=== PATIENT | male | born 1985 | race Two or more races ===

== ENCOUNTER → 2016-09-24 | Outpatient (CLI) | payer BC ==
--- NOTE | 2016-09-24 15:55 | US ---
EXAMINATION TYPE: US kidneys/renal and bladder DATE OF EXAM: 09/24/2016 COMPARISON: NONE CLINICAL HISTORY: Bilateral Flank Pain R10.9. Intermittent bilateral flank pain EXAM MEASUREMENTS: Right Kidney: 10.2 x 5.6 x 4.8 cm Left Kidney: 10.6 x 5.4 x 4.8 cm Right Kidney: no evidence of hydronephrosis or mass Left Kidney: no evidence of hydronephrosis or mass Bladder: wnl Bilateral Jets seen: yes There is no evidence for hydronephrosis at this point in time. No nephrolithiasis is seen. No audelia s are identified. The urinary bladder is anechoic. Bilateral ureteral jets are seen. IMPRESSION: Unremarkable study.
== END | disposition home or self-care (01) ==
LOC: RADUSWWP 15:26
PROVIDERS: ATTEND Family Medicine
DX: R10.9 Unspecified abdominal pain (principal)
CPT/HCPCS: 76770

== ENCOUNTER 2018-02-06 11:12 | Emergency (ER) | payer BC, OTHER ==
[2018-02-06] MEDS ORDERED: SODIUM CHLORIDE 0.9% 1,000 ML IV STA (11:42)
[2018-02-06] MEDS ORDERED: ONDANSETRON 4 MG/2 ML VIAL IVP STA (11:42)
[2018-02-06] MEDS ORDERED: KETOROLAC 30 MG/ML 1 ML VIAL IVP STA (11:42)
[2018-02-06] MEDS ORDERED: MORPHINE SULFATE 2 MG/ML SYRINGE IVP STA (11:42)
--- NOTE | 2018-02-06 12:10 | ED ---
Abdominal Pain HPI - General Chief Complaint: Abdominal Pain Stated Complaint: Trouble Urinating Time Seen by Provider: 02/06/18 11:31 Source: patient Mode of arrival: ambulatory Limitations: no limitations - History of Present Illness Initial Comments: 32-year-old male patient presents to the emergency department today for evaluation of left flank pain and decreased urine output. Patient states he has had issues with kidney pain on and off over the last couple of years. States that last night he began has some discomfort to the left flank and then this morning the pain was significantly worse. He describes it as a sharp stabbing pain to the left flank region. States he is having nausea but has not vomited. States he has been chilled. States he has had frequent urination of small amounts. Denies any hematuria. Patient denies any recent rash, shortness breath, chest pain, diarrhea, constipation, back pain, numbness, tingling, dizziness, weakness, headache, visual changes, or any other complaints. - Related Data Previous Rx's Medication Instructions Recorded Hydrocodone/Acetaminophen [[place] 1 tab PO Q6HR PRN #12 tab 02/06/18 5-325] Ibuprofen [Motrin] 600 mg PO Q8HR PRN #30 tab 02/06/18 Ondansetron [Zofran ODT] 4 mg PO Q8HR PRN #10 tab 02/06/18 Tamsulosin HCl [Flomax] 0.4 mg PO DAILY #7 cap 02/06/18 Allergies Allergy/AdvReac Type Severity Reaction Status Date / Time No Known Allergies Allergy Verified 02/06/18 11:25 Review of Systems ROS Statement: Those systems with pertinent positive or pertinent negative responses have been documented in the HPI. ROS Other: All systems not noted in ROS Statement are negative. Past Medical History Past Medical History: No Reported History History of Any Multi-Drug Resistant Organisms: None Reported Past Surgical History: Appendectomy Past Psychological History: No Psychological Hx Reported Smoking Status: Never smoker Past Alcohol Use History: Occasional Past Drug Use History: None Reported General Exam Limitations: no limitations General appearance: alert, in no apparent distress, other (Physical well- developed, well-nourished adult male patient in no acute distress. Vital signs upon presentation are temperature 97.6F, pulse 63, respirations 20, blood pressure 120/74, pulse ox 98% on room air.) Eye exam: Present: normal appearance, PERRL, EOMI. Absent: scleral icterus, conjunctival injection, periorbital swelling Respiratory exam: Present: normal lung sounds bilaterally. Absent: respiratory distress, wheezes, rales, rhonchi, stridor Cardiovascular Exam: Present: regular rate, normal rhythm, normal heart sounds. Absent: systolic murmur, diastolic murmur, rubs, gallop, clicks GI/Abdominal exam: Present: soft, normal bowel sounds. Absent: distended, tenderness, guarding, rebound, rigid Back exam: Present: normal inspection. Absent: CVA tenderness (R), CVA tenderness (L) Neurological exam: Present: alert, oriented X3, CN II-XII intact Psychiatric exam: Present: normal affect, normal mood Skin exam: Present: warm, dry, intact, normal color. Absent: rash Course Vital Signs 02/06/18 02/06/18 02/06/18 11:23 12:30 14:14 Temperature 97.6 F Pulse Rate 63 Respiratory 20 16 16 Rate Blood Pressure 120/74 O2 Sat by Pulse 98 Oximetry Medical Decision Making - Medical Decision Making 32-year-old male patient presents to the emergency department today for evaluation of left flank pain, vomiting, and urinary retention. Physical examination did reveal left-sided abdominal tenderness, no CVA tenderness. Labs reviewed and are relatively unremarkable however urine did show 1+ protein , 4+ ketones, large amount of blood, trace leukocyte esterase, 85 red blood cells, many calcium oxalate crystals, few urine mucus. CT abdomen and pelvis without contrast was obtained and did reveal a calculus measuring 3 mm in the bladder. Patient symptoms, physical exam findings, lab findings are consistent with recently passed stone. I did discuss findings and results with patient. We'll start pain medication, Flomax. He is instructed to follow-up with urologist for recheck in 1-2 days. Discussed in detail. He verbalizes understanding and agrees this plan. - Lab Data Result diagrams: 02/06/18 12:00 02/06/18 12:00 Lab Results 02/06/18 02/06/18 02/06/18 Range/Units 12:00 12:00 12:00 WBC 6.8 (3.8-10.6) k/uL RBC 5.14 (4.30-5.90) m/uL Hgb 15.5 (13.0-17.5) gm/dL Hct 45.2 (39.0-53.0) % MCV 87.9 (80.0-100.0) fL MCH 30.1 (25.0-35.0) pg MCHC 34.2 (31.0-37.0) g/dL RDW 12.5 (11.5-15.5) % Plt Count 249 (150-450) k/uL Neutrophils % 78 % Lymphocytes % 14 % Monocytes % 5 % Eosinophils % 1 % Basophils % 0 % Neutrophils # 5.3 (1.3-7.7) k/uL Lymphocytes # 0.9 L (1.0-4.8) k/uL Monocytes # 0.4 (0-1.0) k/uL Eosinophils # 0.1 (0-0.7) k/uL Basophils # 0.0 (0-0.2) k/uL Sodium 141 (137-145) mmol/L Potassium 4.1 (3.5-5.1) mmol/L Chloride 103 (98-107) mmol/L Carbon Dioxide 23 (22-30) mmol/L Anion Gap 15 mmol/L BUN 12 (9-20) mg/dL Creatinine 0.74 (0.66-1.25) mg/dL Est GFR (CKD-EPI)AfAm >90 (>60 ml/min/1.73 sqM) Est GFR (CKD-EPI)NonAf >90 (>60 ml/min/1.73 sqM) Glucose 117 H (74-99) mg/dL Calcium 10.0 (8.4-10.2) mg/dL Total Bilirubin 1.0 (0.2-1.3) mg/dL AST 26 (17-59) U/L ALT 29 (21-72) U/L Alkaline Phosphatase 67 (38-126) U/L Total Protein 7.8 (6.3-8.2) g/dL Albumin 4.8 (3.5-5.0) g/dL Amylase 73 (30-110) U/L Lipase 67 (23-300) U/L Urine Color Yellow Urine Appearance Cloudy (Clear) Urine pH 6.0 (5.0-8.0) Ur Specific [place] 1.020 (1.001-1.035) Urine Protein 1+ H (Negative) Urine Glucose (UA) Negative (Negative) Urine Ketones 4+ H (Negative) Urine Blood Large H (Negative) Urine Nitrite Negative (Negative) Urine Bilirubin Negative (Negative) Urine Urobilinogen <2.0 (<2.0) mg/dL Ur Leukocyte Esterase Trace H (Negative) Urine RBC 85 H (0-5) /hpf Urine WBC 2 (0-5) /hpf Calcium Oxalate Crystal Many H (None) /hpf Urine Mucus Few H (None) /hpf - Radiology Data Radiology results: report reviewed, image reviewed CT abdomen and pelvis without contrast was obtained. Report was reviewed in its entirety. Impression by Dr. West shows numerous prominent mesenteric lymph nodes particularly on the right side of the abdomen measuring up to 5 mm. Findings may reflect mesenteric adenitis. Mild circumferential bladder wall thickening. Correlate to exclude cystitis. There is a 3 mm left-sided bladder calculus. Correlate for any prior renal colic to suggest the past on. Mild prostatic enlargement of 4.6 cm. Disposition Clinical Impression: Kidney stone Disposition: HOME SELF-CARE Condition: Good Instructions: Kidney Stones (ED), How to Strain Your Urine (ED) Additional Instructions: Increase fluids. Take medications as directed. Follow-up with urology if symptoms aren't improved over the next 1-2 days. Return immediately for any new , worsening, or concerning symptoms. Prescriptions: Hydrocodone/Acetaminophen [[place] 5-325] 1 tab PO Q6HR PRN #12 tab PRN Reason: Pain Ibuprofen [Motrin] 600 mg PO Q8HR PRN #30 tab PRN Reason: Pain Ondansetron [Zofran ODT] 4 mg PO Q8HR PRN #10 tab PRN Reason: Nausea Tamsulosin HCl [Flomax] 0.4 mg PO DAILY #7 cap Is patient prescribed a controlled substance at d/c from ED?: Yes When asked, does pt state using other controlled substances?: No If prescribed controlled substance>3 days was MAPS reviewed?: Prescribed <3 Days If opioid is for acute pain is fill amount 7 days or less?: Yes If Rx opioid, was Start Talking consent form obtained?: Yes Referrals: Lonny Miranda MD [Primary Care Provider] - 1-2 days Hiram Tapia MD [STAFF PHYSICIAN] - 1-2 days Time of Disposition: 14:32
[2018-02-06 12:31] VITALS: RESP 16
[2018-02-06 12:56] LABS: Basophils % (A) 0 %; Eosinophils # (A) 0.1 k/uL (0-0.7); Eosinophils % (A) 1 %; HCT 45.2 % (39.0-53.0); HGB 15.5 gm/dL (13.0-17.5); Lymphocytes # (A) 0.9 k/uL (1.0-4.8); Lymphocytes % (A) 14 %; MCH 30.1 pg (25.0-35.0); MCHC 34.2 g/dL (31.0-37.0); MCV 87.9 fL (80.0-100.0); Mean Platelet Volume 7.6; Monocytes # (A) 0.4 k/uL (0-1.0); Monocytes % (A) 5 %; Neutrophils # (A) 5.3 k/uL (1.3-7.7); Neutrophils % (A) 78 %; Platelet Count 249 k/uL (150-450); RBC 5.14 m/uL (4.30-5.90); RDW 12.5 % (11.5-15.5); WBC 6.8 k/uL (3.8-10.6)
[2018-02-06 13:06] LABS: ALT 29 U/L (21-72); AST 26 U/L (17-59); Albumin 4.8 g/dL (3.5-5.0); Alkaline Phosphatase 67 U/L (38-126); Amylase 73 U/L (30-110); Anion Gap 15 mmol/L; Blood Urea Nitrogen 12 mg/dL (9-20); Carbon Dioxide 23 mmol/L (22-30); Chloride 103 mmol/L (98-107); Glucose 117 mg/dL (74-99); Lipase 67 U/L (23-300); Potassium 4.1 mmol/L (3.5-5.1); Sodium 141 mmol/L (137-145); Total Protein 7.8 g/dL (6.3-8.2)
[2018-02-06 13:16] LABS: Appearance,Urine Cloudy (Clear); Bilirubin,Urine Negative (Negative); Blood,Urine Large (Negative); Calcium Oxalate Crystals,Urine Many /hpf; Color,Urine Yellow; Glucose,Urine (UA) Negative (Negative); Ketones,Urine 4+ (Negative); Leukocyte Esterase,Urine Trace (Negative); Mucus,Urine Few /hpf; Nitrite,Urine Negative (Negative); Protein,Urine 1+ (Negative); RBC,Urine 85 /hpf (0-5); Urobilinogen,Urine <2.0 mg/dL (<2.0); WBC,Urine 2 /hpf (0-5)
--- NOTE | 2018-02-06 14:10 | CT ---
EXAMINATION TYPE: CT abdomen pelvis wo con DATE OF EXAM: 02/06/2018 COMPARISON: None HISTORY: 32-year-old male Trouble urinating CT DLP: 327 mGycm. Automated exposure control for dose reduction was used. TECHNIQUE: Contiguous axial scanning of the abdomen and pelvis without IV contrast. Coronal and sagit vianney reconstructions performed. FINDINGS: Heart normal size without pericardial effusion. Lung bases clear without pleural effusion. Noncontrast appearance of the liver, gallbladder, adrenal glands, kidneys, spleen with hilar splenule , and pancreas show no gross abnormality. No dilated small bowel, free fluid, or free air. Numerous mesenteric lymph nodes, particularly on the right side of the abdomen measure up to 5 mm. While the appendix is not discretely visualized, there are no secondary findings of acute appendiciti s in the right lower quadrant. Mild overall stone burden. No pericolonic inflammatory change. Sigmoid colon mildly redundant. Mild circumferential bladder wall thickening. There is a small 3 mm calcification projecting at the l eft posterior bladder base. Prostate gland measures 4.6 cm wide. No abnormal fluid collection in the pelvis or pelvic lymphadenopathy seen. Bones: No osseous destructive process. IMPRESSION: 1. Numerous prominent mesenteric lymph nodes particularly on the right side of the abdomen measuring up to 5 mm. Findings may reflect mesenteric adenitis. 2. Mild circumferential bladder wall thickening. Correlate to exclude cystitis. 3. There is a 3 mm left-sided bladder calculus. Correlate for any prior renal colic to suggest a pas sed stone. 4. Mild prostatic enlargement at 4.6 cm.
[2018-02-06] MEDS ORDERED: SODIUM CHLORIDE 0.9% 500 ML 500 ML IV ONE (14:30)
[2018-02-06] MEDS ORDERED: TAMSULOSIN 0.4 MG CAP.ER.24H PO STA (14:30)
[2018-02-06 15:37] VITALS: BP 117/64; PULSE 88; TEMP 98.2
== END 2018-02-06 15:30 | disposition home or self-care (01) ==
LOC: EC 11:12
DX: N20.0 Calculus of kidney (principal); N21.0 Calculus in bladder
CPT/HCPCS: 36415; 80053; 82150; 83690; 85025; 81001; 74176; 99284; 96374; 96375 ×2; 96361; J2405; J1885; J2270; 99285

== ENCOUNTER 2024-05-14 21:08 | Inpatient (IN) | payer BC, OTHER ==
--- NOTE | 2024-05-14 21:18 | ED ---
Psych HPI - General Chief Complaint: Psychiatric Symptoms Stated Complaint: Petitioned Time Seen by Provider: 05/14/24 21:18 Source: patient, RN notes reviewed, old records reviewed Mode of arrival: ambulatory - History of Present Illness Initial Comments: This is a 39-year-old male to ER for psychiatric evaluation patient is under petition for psychiatric evaluation and treatment patient has significant psychiatric history and severe psychiatric illness here in the ER MD Complaint: suicidal ideation, feels depressed Associated Psychiatric Symptoms: depression, suicidal ideation History of same: Yes Quality: constant Improves With: none Worsens With: none Context: not taking psychiatric medications, significant life stressor Associated Symptoms: denies other symptoms Treatments Prior to Arrival: placed on mental health hold If Self Harm: admits thoughts of self harm - Related Data Previous Rx's Medication Instructions Recorded Escitalopram [Lexapro] 10 mg PO DAILY 30 Days #30 tab 05/18/24 Allergies Allergy/AdvReac Type Severity Reaction Status Date / Time No Known Allergies Allergy Verified 05/14/24 21:17 Review of Systems ROS Statement: Those systems with pertinent positive or pertinent negative responses have been documented in the HPI. ROS Other: All systems not noted in ROS Statement are negative. Past Medical History Past Medical History: No Reported History History of Any Multi-Drug Resistant Organisms: None Reported Past Surgical History: Appendectomy Past Psychological History: No Psychological Hx Reported Smoking Status: Current every day smoker Past Alcohol Use History: Occasional Past Drug Use History: None Reported, Marijuana - Past Family History Mother History Unknown: Yes General Exam Limitations: no limitations General appearance: alert, in no apparent distress Head exam: Present: atraumatic, normocephalic, normal inspection Eye exam: Present: normal appearance, PERRL, EOMI. Absent: scleral icterus, conjunctival injection, periorbital swelling ENT exam: Present: normal exam, mucous membranes moist Neck exam: Present: normal inspection. Absent: tenderness, meningismus, lymphadenopathy Respiratory exam: Present: normal lung sounds bilaterally. Absent: respiratory distress, wheezes, rales, rhonchi, stridor Cardiovascular Exam: Present: regular rate, normal rhythm, normal heart sounds. Absent: systolic murmur, diastolic murmur, rubs, gallop, clicks GI/Abdominal exam: Present: soft, normal bowel sounds. Absent: distended, tenderness, guarding, rebound, rigid Extremities exam: Present: normal inspection, full ROM, normal capillary refill. Absent: tenderness, pedal edema, joint swelling, calf tenderness Back exam: Present: normal inspection Neurological exam: Present: alert, oriented X3, CN II-XII intact Psychiatric exam: Present: normal affect, normal mood Skin exam: Present: warm, dry, intact, normal color. Absent: rash Course Vital Signs 05/14/24 21:12 Temperature 97.8 F Pulse Rate 75 Respiratory 16 Rate Blood Pressure 135/85 O2 Sat by Pulse 96 Oximetry - Reevaluation(s) Reevaluation #1: 05/15/24 00:40 Medical records reviewed Reevaluation #2: 05/15/24 00:40 Medically cleared for psychiatric evaluation Reevaluation #3: Was pt. sent in by a medical professional or institution (REILLY Shen, AUTO TRANSMISSION TECHNICIAN, urgent care, hospital, or prison...) When possible be specific @ -no Did you speak to anyone other than the patient for history (EMS, parent, family, police, friend...)? What history was obtained from this source @ -no Did you review nursing and triage notes (agree or disagree)? Why? @ -agree Are old charts reviewed (outside hosp., previous admission, EMS record, old EKG, old radiological studies, urgent care reports/EKG's, prison records)? Report findings @ -yes Differential Diagnosis (chest pain, altered mental status, abdominal pain women, abdominal pain men, vaginal bleeding, weakness, fever, dyspnea, syncope, headache, dizziness, GI bleed, back pain, seizure, CVA, palpatations, mental health, musculoskeletal)? @ -prior EKG interpreted by me (3pts min.). @ -no X-rays interpreted by me (1pt min.). @ -no CT interpreted by me (1pt min.). @ -no U/S interpreted by me (1pt. min.). @ -no What testing was considered but not performed or refused? (CT, X-rays, U/S, labs)? Why? @ -none What meds were considered but not given or refused? Why? @ -none Did you discuss the management of the patient with other professionals (professionals i.e. REILLY Shen, AUTO TRANSMISSION TECHNICIAN, lab, RT, psych nurse, director of social media marketing, equipment analyst, t eacher, branch lending officer, embedded case manager)? Give summary @ -no Was smoking cessation discussed for >3mins.? @ -no Was critical care preformed (if so, how long)? @ -no Were there social determinants of health that impacted care today? How? (Homelessness, low income, unemployed, alcoholism, drug addiction, transportation, low edu. Level, literacy, decrease access to med. care, halfway, rehab)? @ -none Was there de-escalation of care discussed even if they declined (Discuss DNR or withdrawal of care, Hospice)? DNR status @ -no What co-morbidities impacted this encounter? (DM, HTN, Smoking, COPD, CAD, Cancer, CVA, ARF, Chemo, Hep., AIDS, mental health diagnosis, sleep apnea, morbid obesity)? @ -none Was patient admitted / discharged? Hospital course, mention meds given and route, prescriptions, significant lab abnormalities, going to OR and other pertinent info. @ - 39 male deferred psychiatric evaluation patient admitted to mental health unit Admitted for psychiatric evaluation and treatment Undiagnosed new problem with uncertain prognosis? @ -no Drug Therapy requiring intensive monitoring for toxicity (Heparin, Nitro, Insulin, Cardizem)? @ -no Were any procedures done? @ -no Diagnosis/symptom? @ -Acute psychosis Acute, or Chronic, or Acute on Chronic? @ -Acute Uncomplicated (without systemic symptoms) or Complicated (systemic symptoms)? @ -Complicated Side effects of treatment? @ -no Exacerbation, Progression, or Severe Exacerbation? @ -exacerbation Poses a threat to life or bodily function? How? (Chest pain, [place], ND, pneumonia, PE, COPD, DKA, ARF, appy, cholecystitis, CVA, Diverticulitis, Homicidal, Suicidal, threat to staff... and all critical care pts) @ -yes psychiatric illness Reevaluation #4: Differential Mental Health Depression, anxiety, bipolar, psychosis, schizophrenia, borderline personality, situational depression, adjustment disorder, behavioral disorder, brain tumor, malingering, substance abuse, encephalopathy, medication reaction, dementia, hypothyroidism, degenerative neurologic disorder, lupus.... This is not meant to be all-inclusive list Medical Decision Making - Medical Decision Making 39 male deferred psychiatric evaluation patient admitted to mental health unit - Lab Data Result diagrams: 05/15/24 12:03 05/15/24 12:03 Lab Results 03/31/25 Range/Units 22:30 Influenza Type A (PCR) Not Detected (Not Detectd) Influenza Type B (PCR) Not Detected (Not Detectd) RSV (PCR) Not Detected (Not Detectd) SARS-CoV-2 (PCR) Not Detected (Not Detectd) Disposition Clinical Impression: Acute psychosis, Suicidal ideation, Depression Disposition: TRANSFER TO PSYCH HOSP/UNIT Condition: Stable Is patient prescribed a controlled substance at d/c from ED?: No
[2024-05-14 23:22] LABS: Influenza A Not Detected (Not Detectd); Influenza B Not Detected (Not Detectd); RSV Not Detected (Not Detectd)
[2024-05-14] MEDS ORDERED: traZODone HCL 50 MG TAB PO PRN (23:26)
[2024-05-14] MEDS ORDERED: MAGNESIUM HYDROXIDE 2,400 MG/30 ML CUP PO PRN (23:26)
[2024-05-14] MEDS ORDERED: LORazepam 1 MG TAB PO PRN (23:26)
[2024-05-14] MEDS ORDERED: MAG HYDROX/AL HYDROX/SIMETH 355 ML BOTTLE PO PRN (23:26)
[2024-05-14] MEDS ORDERED: LORazepam 2 MG/ML INJ IM PRN (23:26)
[2024-05-14] MEDS ORDERED: IBUPROFEN 600 MG TAB PO PRN (23:26)
[2024-05-14] MEDS ORDERED: ACETAMINOPHEN TAB 325 MG TAB PO PRN (23:26)
--- NOTE | 2024-05-15 08:43 | P.HPIM ---
History of Present Illness H&P Date: 05/15/24 Chief Complaint: Suicidal ideation Patient is a 39-year-old white male with history of remote depression and suicidal ideation who has been struggling due to family issues with marital stress and illness of parents and pets. The patient has been overwhelmed. He works as an digital communications manager. Tobacco use is otherwise noted. No surgical history stated. After calling suicide hotline he is evaluated in the mental health unit. Review of Systems Constitutional: Denies chills, Denies fever Eyes: denies blurred vision, denies pain Ears, nose, mouth and throat: Denies headache, Denies sore throat Cardiovascular: Denies chest pain, Denies shortness of breath Respiratory: Denies cough Gastrointestinal: Denies abdominal pain, Denies diarrhea, Denies nausea, Denies vomiting Past Medical History Past Medical History: No Reported History History of Any Multi-Drug Resistant Organisms: None Reported Past Surgical History: Appendectomy Past Anesthesia/Blood Transfusion Reactions: No Reported Reaction Smoking Status: Never smoker - Past Family History Mother History Unknown: Yes Medications and Allergies Home Medications Medication Instructions Recorded Confirmed Type Hydrocodone/Acetaminophen [[place] 1 tab PO Q6HR PRN #12 tab 02/06/18 Rx 5-325] Ibuprofen [Motrin] 600 mg PO Q8HR PRN #30 tab 02/06/18 Rx Ondansetron [Zofran ODT] 4 mg PO Q8HR PRN #10 tab 02/06/18 Rx Tamsulosin HCl [Flomax] 0.4 mg PO DAILY #7 cap 02/06/18 Rx Allergies Allergy/AdvReac Type Severity Reaction Status Date / Time No Known Allergies Allergy Verified 05/14/24 21:17 Physical Exam Vitals: Vital Signs Temp Pulse Pulse Resp BP BP Pulse Ox 05/15/24 00:41 97.8 F 60 16 139/86 100 05/14/24 21:12 97.8 F 75 16 135/85 96 Intake and Output 05/14/24 05/15/24 05/15/24 22:59 06:59 14:59 Other: Weight 56.699 kg 54.658 kg - Constitutional General appearance: no acute distress - EENT Eyes: EOMI - Neck Neck: no lymphadenopathy - Respiratory Respiratory: bilateral: diminished - Cardiovascular Rhythm: regular Heart sounds: normal: S1, S2 Abnormal Heart Sounds: no S3 Gallop - Gastrointestinal General gastrointestinal: soft, no tenderness - Integumentary Integumentary: no cellulitis - Neurologic Neurologic: CNII-XII intact Thrombosis Risk Factor Assmnt - Choose All That Apply Any of the Below Risk Factors Present?: Yes Each Factor Represents 1 point: Age 41-60 years Other Risk Factors: No Other congenital or acquired thrombophilia - If yes, enter type in comment: No Thrombosis Risk Factor Assessment Total Risk Factor Score: 1 Thrombosis Risk Factor Assessment Level: Low Risk Assessment and Plan (1) Acute psychosis Current Visit: Yes Status: Acute Code(s): F23 - BRIEF PSYCHOTIC DISORDER SNOMED Code(s): 01111636397800 (2) Depression Current Visit: Yes Status: Acute Code(s): F32.A - DEPRESSION, UNSPECIFIED SNOMED Code(s): 52464761 (3) Suicidal ideation Current Visit: Yes Status: Acute Code(s): R45.851 - SUICIDAL IDEATIONS SNOMED Code(s): 7815218 Plan: Reconcile home medications as necessary. Will continue to follow. Nicotine patch for tobacco use. See orders otherwise. Time with Patient: Greater than 30
[2024-05-15] MEDS: NICOTINE 14MG/24HR PATCH TRANSDERM SCH (10:03)
[2024-05-15] MEDS ORDERED: traZODone HCL 50 MG TAB PO PRN (11:47)
[2024-05-15] MEDS: ESCITALOPRAM 5 MG TAB PO STA (11:55)
--- NOTE | 2024-05-15 12:01 | P.HP ---
Psychiatric H&P - . H&P Date: 05/15/24 History & Physical: Allergies Allergy/AdvReac Type Severity Reaction Status Date / Time No Known Allergies Allergy Verified 05/14/24 21:17 Vital Signs Temp 98.6 F 05/15/24 10:20 Pulse 76 05/15/24 10:20 Resp 18 05/15/24 10:20 BP 130/79 05/15/24 10:20 Pulse Ox 96 05/15/24 10:20 FiO2 Intake & Output 05/14/24 05/15/24 05/15/24 18:59 06:59 18:59 Weight 54.658 kg Laboratory Last Values Influenza Type A (PCR) Not Detected (Not Detectd) 05/14/24 22:30 Influenza Type B (PCR) Not Detected (Not Detectd) 05/14/24 22:30 RSV (PCR) Not Detected (Not Detectd) 05/14/24 22:30 SARS-CoV-2 (PCR) Not Detected (Not Detectd) 05/14/24 22:30 05/15/24 11:28 IDENTIFYING DATA: Patient is a 39-year-old male, currently , lives with his in a house, he has no kids, he works as a director of [employer] HPI: Patient presented to the hospital initially yesterday night, he was evaluated by EPS and according to note "pt lying on stretcher in room. pt presents with blunted affect. pt initially spoke in monotone before becoming tearful during assessment. pt volume is soft. pt did not make eye contact with racebook writer during assessment. pt states that he has been struggling with a "depressive episode" for about a month. pt states that it culminated today in a "mental breakdown or what I can only think of as being close to a mental breakdown." pt states that his dogs that he shares with his ex- came over and they are getting older and one is "ready to any day." pt then began speaking about concerns that his parents are getting older and facing numerous health conditions, so he is "not sure how much longer they will be around." pt states that he feels "sad" about his marriage and that he and his got into a verbal fight today which caused him significant distress. pt states that he feels "completely hopeless" and that he has been experiencing "a lot of negative self talk about myself." pt became increasingly tearful while discussing stressors. pt states that he has experienced SI in the past, but that "I never really felt like I would do anything before." pt reports, "I got scared uri because it was different. Uri just felt different." pt states that he voiced his thoughts to his and she called the Suicide Prevention Hotline with him. pt states that he was advised by the hotline to call 911 if he felt as though he was going to do something to harm himself. pt states that he then called 911 and police brought him to the ER. pt is somewhat evasive when discussing SI with racebook writer and minimizes events leading to his arrival to ER. pt denies HI and hallucinations. No delusional thoughts verbalized." Patient was seen today agreeable to speak to racebook writer in the office. 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 States that one of the dogs has been not been doing well and is elderly and may need to be put down. Claims that he also has been dealing with bad news from his parents due to their declining health. Claims that his father has been dealing with prostate cancer. Claims that he is also been having marital difficulties, claims that they had an escalating argument yesterday and states that they are considering divorce as an option. Claims that he has been feeling helpless hopeless, endorsing severe depression and also anxiety. Claims that he was having suicidal ideations feeling that he was a harm to himself did not have a specific plan. Claims that he called the suicide hotline and then called 911 and was brought to the hospital. Claims that his depression has been going on for several weeks., Claims that his sleep and appetite are fair, energy level is poor. Patient denies any current suicidal or homicidal ideations intent or plan. At this time patient denies any auditory or visual hallucinations. Patient denies any flight of ideas racing thoughts and increased in goal directed behavior. Patient admits to using no recreational drugs or cigarettes PAST PSYCHIATRIC HISTORY: Patient has a history of depression/anxiety. Patient denies being on any psychiatric medications. Patient denies any previous psychiatric hospitalizations. Patient denies any psychiatric outpatient follow- up. States that he was previously enrolled in therapy however stopped in 2019. Patient denies any history of suicide attempts in the past. Past Medical History: No Reported History History of Any Multi-Drug Resistant Organisms: None Reported Past Surgical History: Appendectomy Past Psychological History: No Psychological Hx Reported Smoking Status: Current every day smoker Past Alcohol Use History: Occasional Past Drug Use History: None Reported, Marijuana ALLERGIES: as per EMR CHEMICAL DEPENDENCY HISTORY: as per HPI FAMILY PSYCHIATRIC/SUBSTANCE USE HISTORY: Denies SOCIAL HISTORY: Patient was born and raised in [facility]. Claims that he was also raised in [place]. Claims that he completed high school did his bachelor's degree. Denies any legal history. 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 He is here is , he has no kids, he lives with his in a house. MENTAL STATUS EXAM: General Appearance: Patient appears to be thin, longer hair, has a nunez, stated age is alert, directable, and attempts to cooperate. Patient appears to have fair hygiene and grooming. Behavior: Patient is seated without any agitated behavior. Attempts to cooperate, Speech: Patient's speech is fluent and nonpressured. Soft tone of voice Mood/Affect: Patient reports their mood is depressed and anxious, affect is congruent and constricted. Suicidality/Homicidality: Patient denies having any homicidal ideation intent or plan. Denies any suicidal ideations intent or plan Perceptions: Patient denies any visual hallucinations and denies any auditory hallucinations Though content/process: There is no evidence of any delusional thought content and thought process is linear and goal-directed. Memory and concentration: AOX3, grossly intact for the purposes of this session. Can spell "WORLD" backwards Judgment and insight: fair STRENGTHS/WEAKNESSES: strength is that patient is resilient. Weakness is that patient has a chronic history of depression, marital difficulties INTELLECT: Average IMPRESSIONS: Major depressive disorder, without psychotic features Anxiety disorder unspecified PLAN: -Patient is admitted under voluntary status to [facility] for stabilization of psychiatric symptoms and safety. Patient has signed adult voluntary form and has signed medication consent and is placed in patient's chart. -Medications : Agreeable to start Lexapro 5 mg today, increase to 10 mg starting tomorrow for mood/anxiety. Trazodone 50 mg nightly as needed for insomnia -Ativan and Haldol PRN for agitation/aggression -Patient was informed of the risks, benefits and side effects of the medications and patient verbally consented to taking the medications. Patient signed med consent form and was placed in chart. Patient was offered medication information and accepted it -Internal Medicine consult to perform medical evaluation and physical. -NRT -not needed as patient does not smoke -SW on board for discharge planning. Encourage patient to participate in groups to work on coping skills. 05/15/24 11:29 05/15/24 11:56
[2024-05-15 12:23] LABS: Basophils % (A) 0 %; Eosinophils # (A) 0.1 k/uL (0-0.7); Eosinophils % (A) 1 %; HCT 49.2 % (39.0-53.0); HGB 16.2 gm/dL (13.0-17.5); Lymphocytes # (A) 0.9 k/uL (1.0-4.8); Lymphocytes % (A) 9 %; MCV 90.8 fL (80.0-100.0); Mean Platelet Volume 7.8; Monocytes # (A) 0.6 k/uL (0-1.0); Monocytes % (A) 6 %; Neutrophils # (A) 7.9 k/uL (1.3-7.7); Neutrophils % (A) 82 %; Platelet Count 273 k/uL (150-450); RBC 5.42 m/uL (4.30-5.90); RDW 12.9 % (11.5-15.5); WBC 9.6 k/uL (3.8-10.6)
[2024-05-15 12:37] LABS: ALT 22 U/L (4-49); AST 24 U/L (17-59); African American GFR (CKD) >90 (>60 ml/min/1.73 sqM); Albumin 5.2 g/dL (3.5-5.0); Alkaline Phosphatase 92 U/L (38-126); Anion Gap 12 mmol/L; Bilirubin, Delta 0.2 mg/dL (0.0-0.2); Bilirubin,Unconjugated 0.8 mg/dL (0.0-1.1); Blood Urea Nitrogen 12 mg/dL (9-20); Calcium 9.9 mg/dL (8.4-10.2); Carbon Dioxide 25 mmol/L (22-30); Chloride 102 mmol/L (98-107); Glucose 80 mg/dL (74-99); Non-African American GFR(CKD) >90 (>60 ml/min/1.73 sqM); Potassium 4.1 mmol/L (3.5-5.1); Sodium 139 mmol/L (137-145); Total Protein 8.3 g/dL (6.3-8.2)
[2024-05-15 22:17] LABS: Chol/HDL Ratio 2.55 Ratio; LDL Cholesterol,Calculated 97.3 mg/dL (0.0-131.0); VLDL Calculation 11.64 mg/dL (5.00-40.00)
--- NOTE | 2024-05-16 10:56 | P.PN ---
Progress Note - Text Progress Note Date: 05/16/24 Interval history: Patient was seen today for psychiatric follow-up. Patient was wandering alanna willard today. She he was agreeable to be seen in the office today. Claims that he is doing better today, claims that his anxiety and mood have been improving. He did raise concern that he drank a ayahuasca tea over the weekend and had concerns of a possible interaction with his antidepressant medication. Claims that he is tolerating it well so far. Claims that he has been trying to go to groups, using coping skills. Claims that he slept fairly last night no issues. States that his will be coming here today to visit. At this time he is denying any suicidal homicidal ideations intent or plan denying any auditory or visual hallucinations. Not reporting any side effects at this time. Claims that his appetite is mildly improving. MENTAL STATUS EXAM: General Appearance: Patient appears to be thin, longer hair, has a nunez, stated age is alert, directable, and attempts to cooperate. Patient appears to have fair hygiene and grooming. Behavior: Patient is seated without any agitated behavior. Attempts to cooperate, Speech: Patient's speech is fluent and nonpressured. Soft tone of voice, improving mildly Mood/Affect: Patient reports their mood is depressed and anxious, improving mildly, affect is congruent Suicidality/Homicidality: Patient denies having any homicidal ideation intent or plan. Denies any suicidal ideations intent or plan Perceptions: Patient denies any visual hallucinations and denies any auditory hallucinations Though content/process: There is no evidence of any delusional thought content and thought process is linear and goal-directed. Memory and concentration: AOX3, grossly intact for the purposes of this session Judgment and insight: fair IMPRESSIONS: Major depressive disorder, without psychotic features Anxiety disorder unspecified PLAN: -Patient is admitted under voluntary status to [facility] for stabilization of psychiatric symptoms and safety. Patient has signed adult voluntary form and has signed medication consent and is placed in patient's chart. -Medications : increased Lexapro 10 mg daily for mood/anxiety. Trazodone 50 mg nightly as needed for insomnia -Ativan and Haldol PRN for agitation/aggression -NRT -not needed as patient does not smoke -SW on board for discharge planning. Encourage patient to participate in groups to work on coping skills. likely discharge [place] back home if patient is improving psychiatrically.
[2024-05-16] MEDS: ESCITALOPRAM 10 MG TAB PO SCH (12:26)
[2024-05-16 16:07] VITALS: BMI 18.8
--- NOTE | 2024-05-17 10:53 | P.PN ---
Progress Note - Text Progress Note Date: 05/17/24 Interval history: Patient was seen today for psychiatric follow-up. patient was seen sitting in his room. He claims that he is doing a bit better today, claims that he did feel a little bit off in the afternoon yesterday however is feeling much better today. Claims that his came to visit him yesterday and they had some "important conversations" and states that he feels more optimistic about their future. He is reporting an improvement in his mood and also anxiety at this time. Denies any other issues with the medications. Claims that he slept fairly last night has been eating well. At this time he is denying any suicidal homicidal ideations intent or plan denying any auditory or visual hallucinations. MENTAL STATUS EXAM: General Appearance: Patient appears to be thin, longer hair, has a nunez, stated age is alert, directable, and attempts to cooperate. Patient appears to have fair hygiene and grooming. Behavior: Patient is seated without any agitated behavior. Attempts to cooperate Speech: Patient's speech is fluent and nonpressured. Soft tone of voice, improving mildly Mood/Affect: Patient reports their mood is improving mildly, affect is congruent Suicidality/Homicidality: Patient denies having any homicidal ideation intent or plan. Denies any suicidal ideations intent or plan Perceptions: Patient denies any visual hallucinations and denies any auditory hallucinations Though content/process: There is no evidence of any delusional thought content and thought process is linear and goal-directed. more future oriented. Memory and concentration: AOX3, grossly intact for the purposes of this session Judgment and insight: fair, improving mildly IMPRESSIONS: Major depressive disorder, without psychotic features Anxiety disorder unspecified PLAN: -Patient is admitted under voluntary status to [facility] for stabilization of psychiatric symptoms and safety. Patient has signed adult voluntary form and has signed medication consent and is placed in patient's chart. -Medications : Lexapro 10 mg daily for mood/anxiety. Trazodone 50 mg nightly as needed for insomnia -Ativan and Haldol PRN for agitation/aggression -NRT -not needed as patient does not smoke -SW on board for discharge planning. Encourage patient to participate in groups to work on coping skills. likely discharge tuesday back home if patient is improving psychiatrically.
[2024-05-18 10:46] VITALS: BP 123/70; PULSE 57; RESP 16; TEMP 98.4
--- NOTE | 2024-05-18 11:03 | P.DS ---
Providers Date of admission: 05/14/24 23:24 Expected date of discharge: 05/18/24 Attending physician: Juan R Coughlin MD Consults: 05/14/24 23:26 Consult Physician Routine Consulting Provider: Lonny Miranda Consult Reason/Comments: H & P Do you want consulting provider notified?: Yes, Notify in am Primary care physician: Lonny Miranda - Discharge Diagnosis(es) (1) Major depressive disorder without psychotic features Current Visit: Yes Status: Acute Priority: High (2) Anxiety disorder, unspecified Current Visit: Yes Status: Acute Priority: Medium Hospital Course: Admission HPI: Admission note was completed by fiction writer "patient is a 39-year-old male, currently , lives with his in a house, he has no kids, he works as a director of IT. Patient presented to the hospital initially yesterday night, he was evaluated by EPS and according to note "pt lying on stretcher in room. pt presents with blunted affect. pt initially spoke in monotone before becoming tearful during assessment. pt volume is soft. pt did not make eye contact with fiction writer during assessment. pt states that he has been struggling with a "depressive episode" for about a month. pt states that it culminated today in a "mental breakdown or what I can only think of as being close to a mental breakdown." pt states that his dogs that he shares with his ex- came over and they are getting older and one is "ready to any day." pt then began speaking about concerns that his parents are getting older and facing numerous health conditions, so he is "not sure how much longer they will be around." pt states that he feels "sad" about his marriage and that he and his got into a verbal fight today which caused him significant distress. pt states that he feels "completely hopeless" and that he has been experiencing "a lot of negative self talk about myself." pt became increasingly tearful while discussing stressors. pt states that he has experienced SI in the past, but that "I never really felt like I would do anything before." pt reports, "I got scared tonight because it was different. Tonight just felt different." pt states that he voiced his thoughts to his and she called the Suicide Prevention Hotline with him. pt states that he was advised by the hotline to call 911 if he felt as though he was going to do something to harm himself. pt states that he then called 911 and police brought him to the ER. pt is somewhat evasive when discussing SI with fiction writer and minimizes events leading to his arrival to ER. pt denies HI and hallucinations. No delusional thoughts verbalized." Patient was seen today agreeable to speak to fiction writer in the office. 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 States that one of the dogs has been not been doing well and is elderly and may need to be put down. Claims that he also has been dealing with bad news from his parents due to their declining health. Claims that his father has been dealing with prostate cancer. Claims that he is also been having marital difficulties, claims that they had an escalating argument yesterday and states that they are considering divorce as an option. Claims that he has been feeling helpless hopeless, endorsing severe depression and also anxiety. Claims that he was having suicidal ideations feeling that he was a harm to himself did not have a specific plan. Claims that he called the suicide hotline and then called 911 and was brought to the hospital. Claims that his depression has been going on for several weeks., Claims that his sleep and appetite are fair, energy level is poor. Patient denies any current suicidal or homicidal ideations intent or plan. At this time patient denies any auditory or visual hallucinations. Patient denies any flight of ideas racing thoughts and increased in goal directed behavior. Patient admits to using no recreational drugs or cigarettes." Hospital course: Upon admission to the unit patient was directable and agreeable to commence treatment and signed adult voluntary form. Patient was initially depressed, anxious however with time and treatment patient got along well with other patients on the unit and followed unit protocol. Patient was compliant with the medications and denied any side effects throughout hospital course. Patient was started on Lexapro increased to 10 mg daily for mood/anxiety. Patient spoke of his stressors and engaged in therapy both group/activity therapy. Patient was also seen by medical team for history and physical exam. Throughout the course of the hospitalization patient gradually improved with regards to mood, anxiety, sleep and became more future oriented with improved insight and judgment. On the day of discharge patient denied any suicidal or homicidal ideations intent or plan denied any auditory or visual hallucinations. Patient endorsed wanting to live for their health and family. The patient denied any access to guns or weapons. Patient denied any paranoia and did not endorse any delusions. Patient does not have a significant history of substance abuse and was counseled on abstaining from all substances including alcohol and marijuana. Patient was also counseled on the medications and need for regular compliance and was encouraged to follow-up with their outpatient appointment for mental health and also for primary care. Prior to discharge a family meeting will be arranged by social media marketer to answer any questions and ensure safety upon discharge incuding making sure that guns/weapons are either removed from the home or locked away. Mental status exam: General Appearance: Patient appears to be thin, has a nunez, stated age is alert, pleasant, and cooperative. Patient is in no acute distress and has improved hygiene and grooming Behavior: Patient is calmly seated without any agitated behavior. Speech: Patient's speech is fluent and nonpressured. Mood/Affect: Patient reports their mood is "good", affect is congruent and euthymic. Suicidality/Homicidality: Patient denies having any suicidal or homicidal ideation intent or plan. Perceptions: Patient denies any auditory or visual hallucinations. Though content/process: There is no evidence of any delusional thought content and thought process is linear and goal-directed. More future oriented Memory and concentration: AOX3, grossly intact for the purposes of this session. Can spell "WORLD" backwards correctly. Judgment and insight: improved with guarded prognosis Impression: Major depressive disorder, without psychotic features Anxiety disorder unspecified Plan: -Continue with discharge today as patient has improved and stabilized psychiatrically and is not currently an imminent threat to themself and/or others. -Continue medications: Lexapro p.o. 10 mg daily for mood/anxiety -Patient was counseled on the need for medication compliance and appropriate follow-up at mental health and also primary care for medical issues. Patient verbalized understanding and agreed. -Social work to help coordinate patients discharge today. also to ensure safe home environment that guns/weapons are either removed from the home or locked away. Social work also to arrange for patients follow up appointments for psychiatric care along with follow up with primary care provider. -Patient counseled on abstaining from recreational drugs and marijuana and alcohol. Was informed/educated on the adverse effects on their physical and mental health. Patient verbally agreed and understood. -Patient was instructed to return to the hospital or seek immediate medical care if their psychiatric or medical symptoms do worsen or reoccur. Allergies Allergy/AdvReac Type Severity Reaction Status Date / Time No Known Allergies Allergy Verified 05/14/24 21:17 Laboratory Results WBC 9.6 k/uL (3.8-10.6) 05/15/24 12:03 RBC 5.42 m/uL (4.30-5.90) 05/15/24 12:03 Hgb 16.2 gm/dL (13.0-17.5) 05/15/24 12:03 Hct 49.2 % (39.0-53.0) 05/15/24 12:03 MCV 90.8 fL (80.0-100.0) 05/15/24 12:03 MCH 30.0 pg (25.0-35.0) 05/15/24 12:03 MCHC 33.0 g/dL (31.0-37.0) 05/15/24 12:03 RDW 12.9 % (11.5-15.5) 05/15/24 12:03 Plt Count 273 k/uL (150-450) 05/15/24 12:03 MPV 7.8 05/15/24 12:03 Neutrophils % 82 % 05/15/24 12:03 Lymphocytes % 9 % 05/15/24 12:03 Monocytes % 6 % 05/15/24 12:03 Eosinophils % 1 % 05/15/24 12:03 Basophils % 0 % 05/15/24 12:03 Neutrophils # 7.9 k/uL (1.3-7.7) H 05/15/24 12:03 Lymphocytes # 0.9 k/uL (1.0-4.8) L 05/15/24 12:03 Monocytes # 0.6 k/uL (0-1.0) 05/15/24 12:03 Eosinophils # 0.1 k/uL (0-0.7) 05/15/24 12:03 Basophils # 0.0 k/uL (0-0.2) 05/15/24 12:03 Sodium 139 mmol/L (137-145) 05/15/24 12:03 Potassium 4.1 mmol/L (3.5-5.1) 05/15/24 12:03 Chloride 102 mmol/L (98-107) 05/15/24 12:03 Carbon Dioxide 25 mmol/L (22-30) 05/15/24 12:03 Anion Gap 12 mmol/L 05/15/24 12:03 BUN 12 mg/dL (9-20) 05/15/24 12:03 Creatinine 0.72 mg/dL (0.66-1.25) 05/15/24 12:03 Est GFR (CKD-EPI)AfAm >90 (>60 ml/min/1.73 sqM) 05/15/24 12:03 Est GFR (CKD-EPI)NonAf >90 (>60 ml/min/1.73 sqM) 05/15/24 12:03 Glucose 80 mg/dL (74-99) 05/15/24 12:[address] Glu mg/dL 91 mg/dL 05/15/24 12:03 Hemoglobin A1c 4.8 % (<=6.0) 05/15/24 12:03 Calcium 9.9 mg/dL (8.4-10.2) 05/15/24 12:03 Total Bilirubin 1.0 mg/dL (0.2-1.3) 05/15/24 12:03 Conjugated Bilirubin 0.0 mg/dL (0.0-0.3) 05/15/24 12:03 Unconjugated Bilirubin 0.8 mg/dL (0.0-1.1) 05/15/24 12:03 Delta Bilirubin 0.2 mg/dL (0.0-0.2) 05/15/24 12:03 AST 24 U/L (17-59) 05/15/24 12:03 ALT 22 U/L (4-49) 05/15/24 12:03 Alkaline Phosphatase 92 U/L (38-126) 05/15/24 12:03 Total Protein 8.3 g/dL (6.3-8.2) H 05/15/24 12:03 Albumin 5.2 g/dL (3.5-5.0) H 05/15/24 12:03 Triglycerides 58.20 mg/dL (0.00-149.00) 05/15/24 12:03 Cholesterol 179.00 mg/dL (0.00-200.00) 05/15/24 12:03 LDL Cholesterol, Calc 97.3 mg/dL (0.0-131.0) 05/15/24 12:03 VLDL Cholesterol, Calc 11.64 mg/dL (5.00-40.00) 05/15/24 12:03 HDL Cholesterol 70.10 mg/dL (40.00-60.00) H 05/15/24 12:03 Cholesterol/HDL Ratio 2.55 Ratio 05/15/24 12:03 TSH 0.459 mIU/L (0.465-4.680) L 05/15/24 12:03 Free T4 1.50 ng/dL (0.78-2.19) 05/15/24 12:03 Influenza Type A (PCR) Not Detected (Not Detectd) 05/14/24 22:30 Influenza Type B (PCR) Not Detected (Not Detectd) 05/14/24 22:30 RSV (PCR) Not Detected (Not Detectd) 05/14/24 22:30 SARS-CoV-2 (PCR) Not Detected (Not Detectd) 05/14/24 22:30 Vital Signs Temp 98.4 F 05/18/24 09:00 Pulse 57 L 05/18/24 09:00 Resp 16 05/18/24 09:00 BP 123/70 05/18/24 09:00 Pulse Ox 100 05/18/24 09:00 FiO2 Patient Condition at Discharge: Stable Plan - Discharge Summary Discharge Rx Participant: No New Discharge Prescriptions: New Escitalopram [Lexapro] 10 mg PO DAILY 30 Days #30 tab Discontinued Hydrocodone/Acetaminophen [[place] 5-325] 1 tab PO Q6HR PRN #12 tab PRN Reason: Pain Ibuprofen [Motrin] 600 mg PO Q8HR PRN #30 tab PRN Reason: Pain Ondansetron [Zofran ODT] 4 mg PO Q8HR PRN #10 tab PRN Reason: Nausea Tamsulosin HCl [Flomax] 0.4 mg PO DAILY #7 cap Discharge Medication List Escitalopram [Lexapro] 10 mg PO DAILY 30 Days #30 tab 05/18/24 [Rx] Follow up Appointment(s)/Referral(s): Psychology, [place] [facility] [Other] - 05/23/24 5:00 pm (Angeline Miranda,Lonny, MD [Primary Care Provider] - 1-2 days Activity/Diet/Wound Care/Special Instructions: [facility] Discharge Info Avoid the use of street drugs and alcohol. Take all medications as prescribed. When you are in need of refills on your medications, please contact your outpatient medical provider and/or outpatient psychiatrist. Please go to your scheduled outpatient appointments for aftercare treatment. If symptoms return or become worse, call the crisis line at or and/or visit the nearest emergency room for assistance. [place] [facility] Lifeline - call or text 376 Discharge Disposition: HOME SELF-CARE
== END 2024-05-18 13:35 | disposition home or self-care (01) | DRG 880 ==
LOC: EC 21:08 → 3MHU 23:24
PROVIDERS: ADMIT Psychiatry & Neurology Psychiatry; ATTEND Psychiatry & Neurology Psychiatry
DX: R45.851 Suicidal ideations (principal); F32.9 Major depressive disorder, single episode, unspecified; F41.9 Anxiety disorder, unspecified; Z79.899 Other long term (current) drug therapy; Z63.79 Other stressful life events affecting family and household
CPT/HCPCS: 80053; 80061; 82075; 82248; 83036; 84439; 84443; 85025; 87636; 99285